=== PATIENT | female | born 1990 | race Hispanic/Latino ===

== ENCOUNTER 2019-12-07 19:27 | Emergency (ER) | payer OTHER ==
[~2019-12-07] VITALS: Ht 149.9 cm; Wt 61.2 kg
[~2019-12-07 19:27] MED LIST: FLUOXETINE HCL20 MG PO; ONDANSETRON ODT4 MG PO; OXYCODONE HCL5 MG PO; PERCOCET 5-3251 EACH PO; PHENTERMINE H37.5 MG PO; PROZAC10 MG; ZOFRAN ODT4 MG PO
[2019-12-07] MEDS ORDERED: ISIBLOOM 28 DA1 EACH PO (19:49)
== END 2019-12-07 22:38 | disposition home or self-care (01) ==
LOC: ED 19:27
DX: R10.31 Right lower quadrant pain (principal)
CPT/HCPCS: 74177; 80053; 81001; 83690; 84703; 85025; 96375; 99284-25; J1885; J2405; J7030; Q9967

== ENCOUNTER 2019-12-09 09:43 | Emergency (ER) | payer OTHER ==
[~2019-12-09] VITALS: Ht 149.9 cm; Wt 61.2 kg
[~2019-12-09 09:43] MED LIST changes: +ISIBLOOM 28 DA1 EACH PO
--- OUTSIDE RECORDS SUMMARY | 2019-12-09 09:46 | XMS ---
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 Tom has no Care Guidelines for this patient. Alisha VISIT COUNT (12 MO.) [address] [facility] Eunice H. TOTAL 2 NOTE: Visits indicate total known visits. ED/C VISIT TRACKING (12 MO.) 12/09/2019 09:[address] [facility] [place] TYPE: Emergency COMPLAINT: - FLANK PAIN 12/07/2019 19:28 [facility] [place] TYPE: Emergency COMPLAINT: - FLANK PAIN INPATIENT VISIT TRACKING (12 MO.) No inpatient visits to display in this time frame [email or web address]
[2019-12-09] MEDS ORDERED: OXYCODONE HCL5 MG PO (13:20)
== END 2019-12-09 13:38 | disposition home or self-care (01) ==
LOC: ED 09:43
DX: R10.31 Right lower quadrant pain (principal); Z87.442 Personal history of urinary calculi; Z88.6 Allergy status to analgesic agent
CPT/HCPCS: 80053; 81001; 85025; 87210; 96361; 96374; 99284-25; J1885; J7030

== ENCOUNTER 2021-10-04 23:11 | Emergency (ER) | payer OTHER ==
[~2021-10-04] VITALS: Ht 149.9 cm; Wt 64.7 kg
[2021-10-04] MEDS ORDERED: NEXPLANON68 MG SUB-Q (23:29)
[2021-10-05] MEDS ORDERED: ONDANSETRON ODT8 MG PO (01:54)
[2021-10-05] MEDS ORDERED: DILAUDID2 MG PO (01:54)
== END 2021-10-05 02:24 | disposition home or self-care (01) ==
LOC: ED 23:11
DX: N13.2 Hydronephrosis with renal and ureteral calculous obstruction (principal); Z88.8 Allergy status to other drugs, medicaments and biological substances
CPT/HCPCS: 36415; 74176; 80053; 81001; 83690; 83735; 84703; 85025; 96361; 96374; 96375; 99284-25; A9270; J1170; J1885; J2405; J7030

== ENCOUNTER 2023-12-09 15:40 | Emergency (ER) | payer OTHER ==
[~2023-12-09] VITALS: Ht 149.9 cm; Wt 70.1 kg
[~2023-12-09 15:40] MED LIST changes: +DILAUDID2 MG PO; +NEXPLANON68 MG SUB-Q; +ONDANSETRON ODT8 MG PO
[2023-12-09] MEDS ORDERED: ondansetron HCL 4 MG/2 ML VIAL IV ONE (16:30)
[2023-12-09] MEDS ORDERED: SODIUM CHLORIDE 0.9% 1,000 ML IV ONE (16:30)
[2023-12-09] MEDS ORDERED: KETOROLAC TROMETHAMINE 30 MG/ML VIAL IV ONE (16:30)
[2023-12-09 16:40] LABS: BASOPHILS 0.4 % (0-2); EOSINOPHILS 1.4 % (0-6); HEMATOCRIT 36.8 % (35.0-50.0); HEMOGLOBIN 12.4 g/dL (12.0-18.0); LYMPHOCYTES 24.7 % (24-44); MCH 29.4 (27-36); MCHC 33.6 g/dl (30-36); MCV 87.5 fl (81-99); MONOCYTES 5.3 % (0-12); NEUTROPHILS 68.2 % (39-80); PLATELET COUNT 363 K/uL (140-440); RDW 13.3 (10.5-15.0)
[2023-12-09 16:56] LABS: ALBUMIN 3.2 g/dL (3.4-5.0); ALBUMIN/GLOBULIN RATIO 0.76 (1.1-2.4); ANION GAP 13.4 (7-21); BILIRUBIN, TOTAL 0.3 ng/dL (0.2-1.0); BUN/CREATININE RATIO 15.78 (6.0-28.6); CALCIUM 8.7 mg/dL (8.5-10.1); CREATININE, SERUM 0.76 mg/dL (0.55-1.02); POTASSIUM 3.4 mmol/L (3.5-5.1); PROTEIN, TOTAL 7.4 g/dL (6.4-8.2)
[2023-12-09 17:53] LABS: BILIRUBIN, URINE NEGATIVE (negative); BLOOD/HGB, URINE LARGE (Negative); KETONE, URINE NEGATIVE (Negative); LEUK ESTERASE, URINE NEGATIVE (negative); NITRITE, URINE NEGATIVE (negative)
[2023-12-09 17:59] LABS: BACTERIA, URINE RARE /hpf (negative); CRYSTALS, URINE NONE SEEN (0-1+); EPITHELIAL CELLS, URINE NONE SEEN /lpf (0-1+); RED BLOOD CELLS, URINE >50 /hpf (0-5)
[2023-12-09 18:00] LABS: CASTS, URINE NONE SEEN \\lpf; COLLECTION TYPE, URINE CLEAN CATCH; REFLEX CULTURE, URINE No (No)
[2023-12-09] MEDS ORDERED: ONDANSETRON ODT8 MG PO (18:23)
[2023-12-09] MEDS ORDERED: FLOMAX0.4 MG PO (18:23)
[2023-12-09] MEDS ORDERED: OXYCODONE HCL5 MG PO (18:23)
[2023-12-09] MEDS ORDERED: OXYCODONE HCL 5 MG TAB PO ONE (18:30)
[2023-12-09] MEDS ORDERED: TAMSULOSIN HCL 0.4 MG CAP PO ONE (18:30)
[2023-12-09 18:53] VITALS: BP 115/65
== END 2023-12-09 18:54 | disposition home or self-care (01) ==
LOC: ED 15:40
PROVIDERS: Emergency Medicine
DX: N13.2 Hydronephrosis with renal and ureteral calculous obstruction (principal); Z88.5 Allergy status to narcotic agent
CPT/HCPCS: 36415; 80053; 81001; 84703; 85025; 96374; 96375; 99284-25; A9270; J1885; J2405; J7030